=== PATIENT | female | born 1995 | race Caucasian/White ===

== ENCOUNTER 2018-10-27 11:48 | Emergency (ER) | payer OTHER ==
[~2018-10-27] VITALS: Ht 162.6 cm; Wt 72.6 kg
[2018-10-27] MEDS ORDERED: BIRTH CONTROL (11:58)
[2018-10-27 14:22] VITALS: BP 109/63
== END 2018-10-27 14:00 | disposition home or self-care (01) ==
LOC: ER 11:48
DX: G43.109 Migraine with aura, not intractable, without status migrainosus (principal)